=== PATIENT | male | born 1950 | race African-American/Black ===

== ENCOUNTER 2016-09-29 22:07 | Emergency (ER) | payer MEDICARE, OTHER ==
[~2016-09-29] VITALS: Ht 175.3 cm; Wt 68.0 kg
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
[2016-09-29] MEDS: HYDROCODONE/APAP 5-325MG TABLET PO ONE (22:43)
[2016-09-29] MEDS ORDERED: HYDROCODONE/APAP 5-325MG TABLET ONE (22:53)
--- NOTE | 2016-09-29 23:43 | NUR ---
Patient discharged to home in stable conditon. Written and verbal after care instructions given. Patient verbalizes understanding of instructions.
== END 2016-09-29 23:52 | disposition home or self-care (01) ==
LOC: ER 22:08
DX: S63.502A Unspecified sprain of left wrist, initial encounter (principal); S60.212A Contusion of left wrist, initial encounter; F17.200 Nicotine dependence, unspecified, uncomplicated; I10 Essential (primary) hypertension; W21.03XA Struck by baseball, initial encounter; Y93.64 Activity, baseball; Y92.320 Baseball field as the place of occurrence of the external cause; Y99.9 Unspecified external cause status
CPT/HCPCS: 29125; 73110; 73130; 99284; A4663